=== PATIENT | female | born 1960 | race Caucasian/White ===

== ENCOUNTER → 2017-02-03 | Outpatient (CLI) | payer OTHER ==
[~2017-02-03] MED LIST: NO HOME MEDICATIONS
== END ==
LOC: MC.RAD 07:40
DX: Z12.31 Encounter for screening mammogram for malignant neoplasm of breast (principal); Z85.3 Personal history of malignant neoplasm of breast; Z90.11 Acquired absence of right breast and nipple

== ENCOUNTER → 2017-07-19 | Outpatient (CLI) | payer OTHER | LOC: COL.RAD 07:47 | DX: Z08 Encounter for follow-up examination after completed treatment for malignant neoplasm (principal); Z85.3 Personal history of malignant neoplasm of breast; Z90.11 Acquired absence of right breast and nipple | CPT/HCPCS: J7050; Q9967 ==

== ENCOUNTER → 2018-02-06 | Outpatient (CLI) | payer OTHER | LOC: MC.RAD 14:34 | DX: Z12.31 Encounter for screening mammogram for malignant neoplasm of breast (principal); C50.111 Malignant neoplasm of central portion of right female breast; C79.51 Secondary malignant neoplasm of bone; Z17.0 Estrogen receptor positive status [ER+] ==

== ENCOUNTER → 2018-08-08 | Outpatient (CLI) | payer OTHER | LOC: COL.RAD 08:16 | DX: Z95.828 Presence of other vascular implants and grafts (principal); Z90.11 Acquired absence of right breast and nipple | CPT/HCPCS: Q9967 ==

== ENCOUNTER → 2019-02-28 | Outpatient (CLI) | payer OTHER | LOC: MC.RAD 12:21 | DX: Z12.31 Encounter for screening mammogram for malignant neoplasm of breast (principal); N63.21 Unspecified lump in the left breast, upper outer quadrant; Z85.3 Personal history of malignant neoplasm of breast; Z90.11 Acquired absence of right breast and nipple ==

== ENCOUNTER → 2019-08-17 | Outpatient (CLI) | payer OTHER | LOC: COL.RAD 07:40 | DX: C50.411 Malignant neoplasm of upper-outer quadrant of right female breast (principal); Z95.9 Presence of cardiac and vascular implant and graft, unspecified; Z90.11 Acquired absence of right breast and nipple | CPT/HCPCS: Q9967 ==

== ENCOUNTER → 2020-03-04 | Outpatient (CLI) | payer OTHER | LOC: MC.RAD 15:25 | DX: Z12.31 Encounter for screening mammogram for malignant neoplasm of breast (principal); Z85.3 Personal history of malignant neoplasm of breast ==

== ENCOUNTER → 2020-08-12 | Outpatient (CLI) | payer OTHER | LOC: COL.RAD 08:10 | DX: C50.919 Malignant neoplasm of unspecified site of unspecified female breast (principal); Z90.11 Acquired absence of right breast and nipple; Z95.828 Presence of other vascular implants and grafts; Z85.830 Personal history of malignant neoplasm of bone | CPT/HCPCS: Q9967 ==

== ENCOUNTER → 2021-04-14 | Outpatient (CLI) | payer OTHER | LOC: MC.RAD 03-06 13:30 | DX: Z12.31 Encounter for screening mammogram for malignant neoplasm of breast (principal) ==

== ENCOUNTER → 2022-04-29 | Outpatient (CLI) | payer OTHER | LOC: MC.RAD 04-15 11:00 | DX: Z12.31 Encounter for screening mammogram for malignant neoplasm of breast (principal); Z90.11 Acquired absence of right breast and nipple; Z85.3 Personal history of malignant neoplasm of breast ==